=== PATIENT | female | born 1960 | race Caucasian/White ===

== ENCOUNTER → 2020-02-02 09:30 | Outpatient (BNVA) | payer MEDICARE, MEDICAID, SELFPAY | PROVIDERS: Family Provider Family Medicine; PCP Family Medicine; Visit Provider Family Medicine | DX: K21.9 Gastro-esophageal reflux disease without esophagitis (principal); I10 Essential (primary) hypertension; J30.9 Allergic rhinitis, unspecified; E78.00 Pure hypercholesterolemia, unspecified; E11.9 Type 2 diabetes mellitus without complications | CPT/HCPCS: 80053; 80061; 83036 ==

== ENCOUNTER → 2020-02-22 11:37 | Outpatient (BNVA) | payer MEDICARE, MEDICAID, SELFPAY | PROVIDERS: Family Provider Family Medicine; PCP Family Medicine; Visit Provider Podiatrist Foot & Ankle Surgery | DX: M25.571 Pain in right ankle and joints of right foot (principal); M76.829 Posterior tibial tendinitis, unspecified leg; S82.831A Other fracture of upper and lower end of right fibula, initial encounter for closed fracture; X58.XXXA Exposure to other specified factors, initial encounter | CPT/HCPCS: 73610 ==

== ENCOUNTER 2020-02-22 15:14 | Outpatient (CLI) | payer MEDICARE, MEDICAID, SELFPAY | END 2020-02-22 15:15 | disposition home or self-care (01) | LOC: SPT 15:15 | PROVIDERS: Family Provider Family Medicine; PCP Family Medicine; Visit Provider Podiatrist Foot & Ankle Surgery | DX: Z46.89 Encounter for fitting and adjustment of other specified devices (principal); M76.821 Posterior tibial tendinitis, right leg; M25.571 Pain in right ankle and joints of right foot; M76.829 Posterior tibial tendinitis, unspecified leg; S82.831A Other fracture of upper and lower end of right fibula, initial encounter for closed fracture; X58.XXXA Exposure to other specified factors, initial encounter | CPT/HCPCS: 73610; 97760; L1902 ==

== ENCOUNTER 2020-03-29 08:51 | Outpatient (CLI) | payer MEDICARE, MEDICAID, SELFPAY ==
--- NOTE | 2020-03-29 09:05 | MR_ITS ---
WS: [id number] INDICATION: Right foot pain TECHNIQUE: MRI of the right foot without gadolinium enhancement. Sagittal T1 PD and STIR imaging. Axi al PD T2 and STIR imaging. Coronal PD and T2 imaging. FINDINGS: Normal anatomic alignment. No acute fractures. Prior postoperative changes plate and screw fixation distal fibula. Susceptibility artifact from hardware. Normal talus and calcaneus. No evidenc e of avascular necrosis. Plantar calcaneal spurring. Achilles enthesophyte. Metatarsals are normal in appearance. Normal tarsal bones. Normal tibial plafond. Achilles tendon is normal in appearance. Palpable marker lateral hindfoot. Normal underlying soft tis sues. No evidence of soft tissue lesion or mass in this area. Normal visualized peroneal tendons. Nor mal extensor and flexor compartment tendons. Normal navicular. Normal medial and lateral malleolus. N ormal ankle mortise. MR/MR foot RT wo con* [id number] IMPRESSION: 1. Prior postoperative changes plate and screw fixation distal fibula. 2. No acute fractures. Normal talar dome and calcaneus. 3. Palpable marker in the hindfoot. No underlying lesions. 4. Normal peroneal tendons. Normal extensor and flexor compartment tendons. 5. Plantar and Achilles calcaneal spurring.
== END 2020-03-29 08:52 | disposition home or self-care (01) ==
LOC: RADWPI 09:04
PROVIDERS: Family Provider Family Medicine; PCP Family Medicine; Visit Provider Podiatrist Foot & Ankle Surgery
DX: M79.671 Pain in right foot (principal); M77.31 Calcaneal spur, right foot
CPT/HCPCS: 73718

== ENCOUNTER → 2020-05-01 10:27 | Outpatient (BNVA) | payer MEDICARE, MEDICAID, SELFPAY | PROVIDERS: Family Provider Family Medicine; PCP Family Medicine; Visit Provider Family Medicine | DX: K21.9 Gastro-esophageal reflux disease without esophagitis (principal); I10 Essential (primary) hypertension; J30.9 Allergic rhinitis, unspecified; E78.00 Pure hypercholesterolemia, unspecified; E11.9 Type 2 diabetes mellitus without complications | CPT/HCPCS: 80048; 83036 ==

== ENCOUNTER → 2020-05-16 13:13 | Outpatient (BNVA) | payer MEDICARE, MEDICAID, SELFPAY | PROVIDERS: Family Provider Family Medicine; PCP Family Medicine; Visit Provider Family Medicine | DX: Z13.89 Encounter for screening for other disorder (principal) | CPT/HCPCS: 88304 ==

== ENCOUNTER → 2020-08-07 10:25 | Outpatient (BNVA) | payer MEDICARE, MEDICAID, SELFPAY | PROVIDERS: Family Provider Family Medicine; PCP Family Medicine; Visit Provider Family Medicine | DX: I10 Essential (primary) hypertension (principal); E11.9 Type 2 diabetes mellitus without complications; E78.00 Pure hypercholesterolemia, unspecified; K21.9 Gastro-esophageal reflux disease without esophagitis; M76.821 Posterior tibial tendinitis, right leg | CPT/HCPCS: 80053; 80061; 83036 ==

== ENCOUNTER → 2021-02-05 10:44 | Outpatient (BNVA) | payer BC, SELFPAY | PROVIDERS: Family Provider Family Medicine; PCP Family Medicine; Visit Provider Family Medicine | DX: I10 Essential (primary) hypertension (principal); E11.9 Type 2 diabetes mellitus without complications; E78.00 Pure hypercholesterolemia, unspecified; K21.9 Gastro-esophageal reflux disease without esophagitis | CPT/HCPCS: 80048; 80061; 83036 ==

== ENCOUNTER → 2021-04-15 09:32 | Outpatient (BNVA) | payer MEDICARE, MEDICAID, SELFPAY | PROVIDERS: Family Provider Family Medicine; PCP Family Medicine; Visit Provider Podiatrist Foot & Ankle Surgery | DX: M25.571 Pain in right ankle and joints of right foot (principal); M76.821 Posterior tibial tendinitis, right leg; Z01.818 Encounter for other preprocedural examination | CPT/HCPCS: 73610 ==

== ENCOUNTER → 2021-05-06 15:21 | Outpatient (BNVA) | payer MEDICARE, MEDICAID, SELFPAY | PROVIDERS: Family Provider Family Medicine; PCP Family Medicine; Visit Provider Podiatrist Foot & Ankle Surgery | DX: Z01.818 Encounter for other preprocedural examination (principal); Z20.822 Contact with and (suspected) exposure to COVID-19 | CPT/HCPCS: 87635 ==

== ENCOUNTER 2021-05-10 06:11 | Day surgery (SDC) | payer MEDICARE, MEDICAID, SELFPAY ==
[2021-05-09 10:48] VITALS: BMI 25.9
[2021-05-10] VITALS (8 sets, daily range): BP systolic 103–159; BP diastolic 64–96; PULSE 77–110; RESP 13–22; TEMP 36.1–36.6; O2SAT 92–99
[2021-05-10] MEDS: sodium chloride 0.9% 1,000 ML 30 ML IV (07:05)
--- NOTE | 2021-05-10 07:05 | ANES.PREANE2 ---
Pre-Anesthetic Assessment Pre-Anesthetic Assessment: Height/Weight: Height 1.68 m Weight 73.028 kg Temp Pulse Resp BP Pulse Ox 97.7 F 110 H 18 159/96 99 05/10/21 06:28 05/10/21 06:28 05/10/21 06:28 05/10/21 06:28 05/10/21 06:28 Preop Diagnosis: Painful hardware right ankle Proposed Procedure: Operation Date: 05/10/21 08:00 Proposed Procedures p 53862 Deep Hardware Removal of the Right Ankle T84.84XA(Right) - Domenico Harley DPM Familial anesthetic complications: PONV Was Beta Marcos taken within 24 hours: N/A Was Clonidine taken within 24 hours: N/A Last intake: Intake Last Liquid Date 05/09/21 Last Liquid Time 17:30 Last Solid Date 05/09/21 Last Solid Time 16:30 Social: Social History: Tobacco and No alcohol Exam: Pre-Anes Outpt Exam: alert, oriented x 3, clear to auscultation bilaterally and regular rate & rhythm Airway: Cervical ROM: WNL MP: 3 Dentition: Loose (bottom tooth) and Full CV/HEM: CV/HEM: HTN Metabolic: Metabolic: DM and Hyperlipidemia Anesthetic Plan: ASA status: 3 Anesthesia: General Risk of > 500 ml blood loss (7ml/kg in children): No Meds/Allergies Current Medications: Current Medications Generic Name Dose Route Start Last Admin Trade Name Freq PRN Reason Stop Dose Admin Sodium Chloride 1,000 mls @ 30 ml s/hr 05/10/21 06:30 05/10/21 07:05 Sodium Chloride 0.9% IV 05/11/21 06:29 30 mls/hr .Q24H CAROL Administration PFSH Anesthesia PFSH: Medical History Allergic rhinitis Chronic cough Essential hypertension GERD (gastroesophageal reflux disease) History of nonmelanoma skin cancer Hypercholesteremia Type 2 diabetes mellitus Surgical History H/O section H/O hernia repair H/O: hysterectomy History of ankle surgery History of surgery of liver Hx of basal cell carcinoma excision S/P appendectomy S/P cholecystectomy Social History Quit status (tobacco): not considering quitting Second hand smoke exposure: No Alcohol intake: current Alcohol intake frequency: holidays/special occasions only Desire information about substance/drug rehabilitation?: No History of recent travel: No Current gender identity: Female Female Reproductive History: Spontaneous abortions: No Data Anesthesia Cardiac Studies: No Data to Display
--- NOTE | 2021-05-10 07:49 | P.OP_ITS ---
Operative Report Date of procedure: May 10, 2021 Pre-op Diagnosis: Painful hardware right ankle Post-op diagnosis: same Post-op Findings: None Procedure Done: Deep Hardware Removal of the Right Ankle CPT code 70542 Implants: 3-0 Vicryl, 4-0 Vicryl, skin pam Pathology: none sent Surgeon: Domenico Harley D.P.M. Import/Export Freight Forwarder: Cindy Anesthesia: MAC Estimated blood loss: Less than 5 Tourniquet time: 21 minutes IV fluids: None Urine output: None Complications: None Condition: stable Disposition: PACU Brief History: She has persistent hardware pain on her right outside ankle. Would like to have this removed. Risks include pain, bleeding, numbness, infection, failure to alleviate pain, keloid scar, failure to extract hardware, hardware breakage. Need for further surgical intervention. Patient is agreeable wishes to proceed. Has been n.p.o. since midnight. Initial patient's right lower extremity, informed consent signed she wishes to proceed no guarantees written, expressed or implied. Procedure: Patient was brought to the operating room and placed on the operating table in supine position. A timeout was performed. Anesthesia was then administered by the anesthesia service. Local anesthesia injected by myself consisting of 20 cc of 0.5% Marcaine plain in a V-block proximal to the operative site right lateral ankle. Well-padded pneumatic tourniquet applied to the high calf. Right lower extremity was then scrubbed, prepped and draped utilizing normal aseptic technique. Right foot and ankle was examined a weighted with an Esmarch bandage and a tourniquet inflated to 250 mmHg. Attention was directed to the right lateral ankle where over the previous healed cicatrix a linear longitudinal incision was made with #15 blade and carried down to periosteum utilizing a combination of blunt and sharp technique. Care was taken to retract and preserve neurovascular tendinous structures. All bleeders were ligated and cauterized as necessary. Linear periosteal incision was made and a lateral fibular plate was encountered. Total of 4 screws in anatomic fibular plate was removed and passed from the operative field. Incision site was flushed with copious amounts of sterile saline solution. Attention was then directed to the distal fibula where determination was made that further surgical trauma outweighing benefits of removal of 2 remaining screws that are interosseous/interfragmentary these were left intact screw heads were not proud that were not visualized these were well countersunk and will remain intact. Incision site was flushed once again with saline solution. Incision was then closed utilizing 3-0 Vicryl periosteum, 4-0 Vicryl subcutaneous tissue, pam at skin and and postoperative injection of Exparel total of 10 mL expanded with an additional 10 mL of 0.5 Marcaine plain in a grid like fashion and subcutaneously was performed per manufacture recommendation. Incision was then asked with Adaptic, sterile 4 x 4, Kerlix and Justin wrap. Tourniquet was then deflated and a prompt hyperemic response is noted to the distal digits of the right foot. Patient tolerated the procedure and anesthesia well and was transferred to the PACU with vital signs stable and vascular status intact. Postop shoe applied to the right lower extremity. Patient was given at home discharge instructions on paperwork as well as my phone number to contact with any postoperative questions or concerns. Hydrocodone sent to her pharmacy of choice
--- NOTE | 2021-05-10 07:49 | W.PM.OPSUD ---
Surgery/Procedure H&P Update DATE OF PROCEDURE: May 10, 2021 DATE H&P PERFORMED: 04/15/21 H&P UPDATE INFORMATION: I have reviewed H&P completed within last 30 days, I have examined patient prior to procedure, No changes to prior documentation and H&P is in [facility] EMR on date indicated PREOP DIAGNOSIS: Painful hardware right ankle PLANNED PROCEDURE: Operation Date: 05/10/21 08:00 Proposed Procedures p 74529 Deep Hardware Removal of the Right Ankle T84.84XA(Right) - Domenico Harley DPM
[2021-05-10] MEDS: clindamycin 600 MG/50 ML PREMIX 100 MG IV (08:10)
--- NOTE | 2021-05-10 08:36 | PC.NURSE ---
4 screws removed from patients right ankle, sent to sterile processing, will be returned to patient.
--- NOTE | 2021-05-10 08:57 | XRR_ITS ---
PROCEDURE INFORMATION: Exam: XR Right Ankle Exam date and time: 05/10/2021 8:57 AM Age: 60 years old Clinical indication: Device placement; Other: Deep hardware removal of the right ankle cpt code 60706; Prior surgery; Surgery date: Post-operative (0-2 days); Additional info: Postop TECHNIQUE: Imaging protocol: XR Right ankle. Views: 3 or more views. COMPARISON: CR XR ankle RT min 3V* [id number] 04/15/2021 9:38 AM FINDINGS: Bones/joints: Interval removal of the fibular side plate and associated screws. Two other longer screws remain in the distal fibula. No acute fracture. No dislocation. The ankle mortise is intact. Soft tissues: There is lateral superficial soft tissue swelling. XR/XR ankle RT min 3V* [id number] IMPRESSION: Postoperative changes.
--- NOTE | 2021-05-10 14:49 | ANE.PACU2 ---
Inpatient post-anesthesia follow up: Airway intact: Yes Vital signs: Temperature 97.9 F Pulse Rate 82 Respiratory Rate 15 Blood Pressure 130/90 Pulse Oximetry 98 Oxygen Delivery Me thod Room Air Oxygen Flow Rate Fraction of Inspir ed Oxygen Hydration adequate: Yes Nausea and vomiting: No Pain level: 2 Mental status: Baseline
== END 2021-05-10 09:41 | disposition home or self-care (01) ==
PROVIDERS: PCP Family Medicine; Visit Provider Podiatrist Foot & Ankle Surgery
PROC: (CPT 20680; principal; 2021-05-10 07:40)
DX: T84.84XA Pain due to internal orthopedic prosthetic devices, implants and grafts, initial encounter (principal); I10 Essential (primary) hypertension; E11.9 Type 2 diabetes mellitus without complications; E78.5 Hyperlipidemia, unspecified; E78.00 Pure hypercholesterolemia, unspecified; Z79.84 Long term (current) use of oral hypoglycemic drugs
CPT/HCPCS: 20680; 73610; 96365; C9290; J2250; J2704; J3490; J7030

== ENCOUNTER → 2021-08-01 08:24 | Outpatient (BNVA) | payer MEDICARE, MEDICAID, SELFPAY | PROVIDERS: PCP Family Medicine; Visit Provider Podiatrist Foot & Ankle Surgery | DX: Z47.89 Encounter for other orthopedic aftercare (principal); M25.571 Pain in right ankle and joints of right foot | CPT/HCPCS: 73610 ==

== ENCOUNTER → 2021-08-07 11:02 | Outpatient (BNVA) | payer MEDICARE, MEDICAID, SELFPAY | PROVIDERS: PCP Family Medicine; Visit Provider Family Medicine | DX: K21.9 Gastro-esophageal reflux disease without esophagitis (principal); I10 Essential (primary) hypertension; E11.9 Type 2 diabetes mellitus without complications; L60.3 Nail dystrophy; E78.00 Pure hypercholesterolemia, unspecified | CPT/HCPCS: 80053; 83036 ==

== ENCOUNTER → 2021-09-19 09:02 | Outpatient (BNVA) | payer MEDICARE, MEDICAID, SELFPAY | PROVIDERS: PCP Family Medicine; Visit Provider Podiatrist Foot & Ankle Surgery | DX: B35.1 Tinea unguium (principal) | CPT/HCPCS: 80053 ==

== ENCOUNTER → 2022-02-05 10:56 | Outpatient (BNVA) | payer MEDICARE, MEDICAID, SELFPAY | PROVIDERS: PCP Family Medicine; Visit Provider Family Medicine | DX: E11.9 Type 2 diabetes mellitus without complications (principal); E78.00 Pure hypercholesterolemia, unspecified; I10 Essential (primary) hypertension | CPT/HCPCS: 80053; 80061; 83036; 83721 ==

== ENCOUNTER → 2022-04-21 08:37 | Outpatient (BNVA) | payer MEDICARE, MEDICAID, SELFPAY | PROVIDERS: PCP Family Medicine; Visit Provider Podiatrist Foot & Ankle Surgery | DX: M72.2 Plantar fascial fibromatosis (principal); B35.1 Tinea unguium | CPT/HCPCS: 99213 ==

== ENCOUNTER → 2022-06-23 08:50 | Outpatient (BNVA) | payer MEDICARE, MEDICAID, SELFPAY | PROVIDERS: PCP Family Medicine; Visit Provider Podiatrist Foot & Ankle Surgery | DX: B35.1 Tinea unguium (principal); M72.2 Plantar fascial fibromatosis; G57.51 Tarsal tunnel syndrome, right lower limb | CPT/HCPCS: 99213; 99214 ==

== ENCOUNTER 2022-07-07 11:20 | Outpatient (CLI) | payer MEDICARE, MEDICAID, SELFPAY | END 2022-07-07 11:21 | disposition home or self-care (01) | LOC: SPT 11:21 | PROVIDERS: PCP Family Medicine; Visit Provider Podiatrist Foot & Ankle Surgery | DX: Z46.89 Encounter for fitting and adjustment of other specified devices (principal); M72.2 Plantar fascial fibromatosis | CPT/HCPCS: 97760; L3030 ==

== ENCOUNTER → 2022-08-11 10:09 | Outpatient (BNVA) | payer MEDICARE, MEDICAID, SELFPAY | PROVIDERS: PCP Family Medicine; Visit Provider Family Medicine | DX: E78.00 Pure hypercholesterolemia, unspecified (principal); K21.9 Gastro-esophageal reflux disease without esophagitis; J30.1 Allergic rhinitis due to pollen; I10 Essential (primary) hypertension; E11.9 Type 2 diabetes mellitus without complications; J30.9 Allergic rhinitis, unspecified; Z71.85 Encounter for immunization safety counseling; L90.5 Scar conditions and fibrosis of skin | CPT/HCPCS: 80053; 83036 ==

== ENCOUNTER → 2022-08-18 09:43 | Outpatient (BNVA) | payer MEDICARE, MEDICAID, SELFPAY | PROVIDERS: PCP Family Medicine; Visit Provider Podiatrist Foot & Ankle Surgery | DX: B35.1 Tinea unguium (principal); M72.2 Plantar fascial fibromatosis; G57.51 Tarsal tunnel syndrome, right lower limb | CPT/HCPCS: 99213 ==

== ENCOUNTER → 2022-12-31 09:24 | Outpatient (BNVA) | payer MEDICARE, MEDICAID, SELFPAY | PROVIDERS: PCP Family Medicine; Visit Provider Podiatrist Foot & Ankle Surgery | DX: G57.51 Tarsal tunnel syndrome, right lower limb (principal); T84.84XA Pain due to internal orthopedic prosthetic devices, implants and grafts, initial encounter; Y79.2 Prosthetic and other implants, materials and accessory orthopedic devices associated with adverse incidents | CPT/HCPCS: 73630; 99214 ==

== ENCOUNTER 2023-01-23 06:25 | Day surgery (SDC) | payer MEDICARE, MEDICAID, SELFPAY ==
[2023-01-22 12:40] VITALS: BMI 25.2
[2023-01-23] VITALS (7 sets, daily range): BP systolic 82–188; BP diastolic 59–88; PULSE 71–83; RESP 16–18; TEMP 36.3–36.6; O2SAT 93–98
--- NOTE | 2023-01-23 | XR_ITS ---
WS: [id number] Exam: XR ankle RT 2V [id number] Date/Time of Exam: 01/23/2023 12:00 AM Reason For Exam: SONYA PIC AP view of the right ankle demonstrates 2 orthopedic screws superimposing the fibula. A lateral view of the right foot depicts an orthopedic wire superimposing the anterior calcaneus and talus. These im ages were obtained for intraoperative purposes.
[2023-01-23] MEDS: sodium chloride 0.9% 1,000 ML 30 ML IV (06:48)
--- NOTE | 2023-01-23 07:06 | ANES.PREANE2 ---
Pre-Anesthetic Assessment Height/Weight: Height 1.69 m Weight 72.121 kg Temp Pulse Resp BP Pulse Ox O2 Del Method 97.4 F L 83 18 188/88 98 Room Air 01/23/23 06:17 01/23/23 06:17 01/23/23 06:17 01/23/23 06:17 01/23/23 06:17 01/23/23 06:42 Preop Diagnosis: Painful hardware right ankle Operation Date: 01/23/23 08:10 Proposed Procedures p ?Hardware removal right ankle 44147,T84.84 XA(Right) - Domenico Harley DPM Familial anesthetic complications: None Was Beta Marcos taken within 24 hours: N/A Was Clonidine taken within 24 hours: N/A Last intake: Intake Last Liquid Date 01/22/23 Last Liquid Time 17:30 Last Solid Date 01/22/23 Last Solid Time 16:00 Social No alcohol and No tobacco quit smoking Exam alert, oriented x 3, clear to auscultation bilaterally and regular rate & rhythm Airway Mallampati: Class III Dentition: loose and other (multiple missing) CV/HEM Hypertension GI Gastroesophageal Reflux Disease Metabolic Diabetes Mellitus and Hyperlipidemia Anesthetic Plan ASA status: 3 Anesthesia: MAC Risk of > 500 ml blood loss (7ml/kg in children): No Medications/Allergies Home Medications Medication Instructions Recorded Confirmed Last Taken Type Sole Supports #1 ea 04/21/22 12/31/22 Unknown Rx Zyrtec 10 mg capsule (cetirizine) 10 mg PO .at bedtime 90 days #90 08/11/22 01/22/23 01/22/23 Rx caps atorvastatin 40 mg tablet 40 mg PO DAILY 90 days #90 tabs 08/11/22 01/22/23 01/22/23 Rx cimetidine 200 mg tablet 200 mg PO BID 90 days #180 tabs 08/11/22 01/22/23 01/22/23 Rx fluticasone propionate 50 1 spray intranasal Q12H #15.8 mL 08/11/22 01/22/23 01/22/23 Rx mcg/actuation nasal spray,suspension metformin 1,000 mg tablet 1,000 mg PO DAILY 90 days #90 tabs 08/11/22 01/22/23 01/22/23 Rx triamcinolone acetonide 0.1 % 1 applic topical BID #80 grams 08/11/22 01/22/23 01/22/23 Rx topical ointment lisinopril 40 mg tablet 40 mg PO DAILY 01/22/23 01/22/23 01/22/23 History Allergies Allergy/AdvReac Type Severity Reaction Status Date / Time aspirin Allergy Unknown GI Bleed Verified 01/23/23 06:34 ibuprofen Allergy Unknown GI BLEED Verified 01/23/23 06:34 milk Allergy Unknown GI BLEED Verified 01/23/23 06:34 oxycodone [From Percocet] Allergy Unknown GI BLEED Verified 01/23/23 06:34 Penicillins Allergy Unknown GI BLEED Verified 01/23/23 06:34 Current Medications Generic Name Dose Route Start Last Admin Trade Name Freq PRN Reason Stop Dose Admin Sodium Chloride 1,000 mls @ 30 mls/hr 01/23/23 06:30 01/23/23 06:48 Sodium Chloride 0.9% IV 01/24/23 06:29 30 mls/hr .Q24H CAROL Administration PFSH Anesthesia Medical History Allergic rhinitis Chronic cough Essential hypertension GERD (gastroesophageal reflux disease) History of nonmelanoma skin cancer Hypercholesteremia Type 2 diabetes mellitus Surgical History H/O section H/O hernia repair H/O: hysterectomy History of ankle surgery History of surgery of liver Hx of basal cell carcinoma excision S/P appendectomy S/P cholecystectomy Social History Smoking and tobacco status: former smoker Quit status (tobacco): not considering quitting Second hand smoke exposure: No Alcohol intake: current Alcohol intake frequency: holidays/special occasions only Substance/Drug Use: never Desire information about substance/drug rehabilitation?: No Current gender identity: Female Female Reproductive History Spontaneous abortions: No Data Anesthesia Cardiac Studies: No Data to Display
--- NOTE | 2023-01-23 07:43 | W.PM.OPSUD ---
Surgery/Procedure H&P Update DATE OF PROCEDURE: January 23, 2023 DATE H&P PERFORMED: 12/31/22 CHANGES TO PREVIOUS DOCUMENTATION: none PREOP DIAGNOSIS: Painful hardware right ankle PLANNED PROCEDURE: Operation Date: 01/23/23 08:10 Proposed Procedures p ?Hardware removal right ankle 94870,T84.84 XA(Right) - Domenico Harley DPM
[2023-01-23] MEDS: clindamycin 600 MG/50 ML PREMIX 100 MG IV (08:00)
--- NOTE | 2023-01-23 08:48 | PM.OP ---
Operative Report Date of procedure: January 23, 2023 Pre-op diagnosis: Preop Diagnosis Painful hardware right ankle Post-op diagnosis: Same Post-op findings: None Procedure done: Hardware removal right ankle. CPT code 17908 Implants: 4-0 nylon Specimens removed/disposition: Screw x2 removed without incident Pathology: None Surgeon: Domenico Harely D.P.M. Outpatient Admitting Clerk: Vickie Estimated blood loss: 5 29 IV fluids: 0 Urine output: 0 Complications: None Brief History: Patient is a pleasant 62-year-old female presents with complaints of pain on the outside of her right ankle.? She is questioning if retained screws are source of her pain.? She has been wearing custom orthotics supportive shoes.? Has been wearing compression socks and performing daily range of motion exercises as well as topical anti-inflammatories.? She has pain at the outside of her right ankle on a regular basis with everyday activities.? She does not experience any buckling or rolling of her right ankle.? Discussed potential benefits of hardware movable being reduction in pain.? No guarantee that hardware removal may result in pain relief.? She is aware of this.? I reviewed at length with the patient, the risks, potential complications, benefits, alternatives, expectations, and typical outcomes associated with the surgery. The risks and potential complications were explained in detail, including but not limited to infection, wound dehiscence or soft tissue complications, bleeding and hematoma, chronic edema, neuritis or nerve damage producing numbness or chronic pain, CRPS, failure to relieve pain or worsening pain, thick / painful / unsightly scar, limited motion / stiffness, malposition, delayed union, malunion, or nonunion, fracture, reaction to implants, anesthetic complications, venous thromboembolism, and deformity recurrence.? I discussed the notion of no regrets with the patient as it pertains to complications and outcomes. The patient seemed to understand the nature of the proposed care and required convalescence. They asked appropriate questions, answered to their satisfaction. They are aware no guarantees can be made as to a satisfactory outcome and they understand there may be other possible unforeseen complications or outcomes not listed here that will be treated accordingly if they arise. There were no written or implied guarantees given to the patient. They gave informed consent to proceed. Procedure: Under mild sedation the patient was brought to the operating room and remained on the gurney in supine position. A timeout was performed. Anesthesia was then administered by the anesthesia service. Local anesthesia was injected by myself consisting of 0.5% Marcaine plain and Exparel in a local field block to the right lateral distal leg just proximal to the planned incision. Well-padded pneumatic tourniquet applied to the right calf. The right lower extremity was scrubbed, prepped and draped utilizing normal aseptic technique. Right foot and ankle were exanguinated with Esmarch bandage and the tourniquet inflated to 250 mmHg. Attention was directed to the right lateral ankle where the lateral malleolus was palpated. Utilizing mini C arm and triangulation with percutaneous K wire the K wire was inserted into the cannula percutaneously of the 2 screws retained in the right lateral malleolus. Percutaneous incision was made through skin and a cannulated screwdriver was utilized to remove both screws from bone without fragmentation or failure. Screws were removed in their entirety and passed from the operative field. The incision was irrigated with copious amounts of sterile skin solution. Intraoperative C-arm confirmed both in the AP, oblique and lateral view that no retained hardware was appreciated and the all hardware was extracted without complication or fragmentation. Skin was closed with 4-0 nylon. The incision was then dressed with Adaptic, sterile 4 x 4's, Kerlix and Justin wrap. Smooth range of motion of the right ankle was appreciated intraoperatively. No crepitus appreciated with range of motion of the right ankle intraoperatively. Tourniquet was deflated and a prompt hyperemic response was noted to the distal digits of the right foot. Postop shoe was applied to the right foot. Patient tolerated the procedure well and was transferred to the PACU with vital signs stable and vascular status intact. Following a period of postoperative monitoring she will be discharged home. May be weightbearing as tolerated. She is to elevate her right foot while resting. Was given at home care instructions and postoperative follow-up as well as my cell phone number to contact with any postoperative questions or concerns.
--- NOTE | 2023-01-23 08:50 | PC.NURSE ---
Pt arrived to OPS at 0847 with oral airway in place and O2 at 6L/min via simple mask. Dressing to right foot c/d/i, right toes w/d, cap refill <3 seconds, able to wiggle toes. Awake at this time, oral airway removed, tolerated well.
--- NOTE | 2023-01-23 13:00 | ANE.PACU2 ---
Inpatient post-anesthesia follow up: Airway intact: Yes Vital signs: Temperature 97.8 F Pulse Rate 73 Respiratory Rate 16 Blood Pressure 111/64 Pulse Oximetry 96 Oxygen Delivery Me thod Room Air Oxygen Flow Rate 6 Fraction of Inspir ed Oxygen Hydration adequate: Yes Nausea and vomiting: No Pain level: 1 Mental status: Baseline
[2023-01-26 05:16] LABS: Glucose Point of Care 134 mg/dL (70-110)
== END 2023-01-23 09:56 | disposition home or self-care (01) ==
PROVIDERS: PCP Family Medicine; Visit Provider Podiatrist Foot & Ankle Surgery
PROC: (CPT 20680; principal; 2023-01-23 08:00)
DX: T84.84XA Pain due to internal orthopedic prosthetic devices, implants and grafts, initial encounter (principal); Y79.2 Prosthetic and other implants, materials and accessory orthopedic devices associated with adverse incidents; Z87.891 Personal history of nicotine dependence; I10 Essential (primary) hypertension; K21.9 Gastro-esophageal reflux disease without esophagitis; E11.9 Type 2 diabetes mellitus without complications; E78.5 Hyperlipidemia, unspecified; Z79.84 Long term (current) use of oral hypoglycemic drugs
CPT/HCPCS: 20680; 36416; 73600; 76000; 82962; C9290; J2250; J2704; J3010; J3490; J7030

== ENCOUNTER → 2023-01-29 11:56 | Outpatient (BNVA) | payer MEDICARE, MEDICAID, SELFPAY | PROVIDERS: PCP Family Medicine; Visit Provider Podiatrist Foot & Ankle Surgery | DX: Z98.890 Other specified postprocedural states (principal); Z48.89 Encounter for other specified surgical aftercare | CPT/HCPCS: 99024 ==

== ENCOUNTER → 2023-02-04 11:00 | Outpatient (BNVA) | payer MEDICARE, MEDICAID, SELFPAY | PROVIDERS: PCP Family Medicine; Visit Provider Podiatrist Foot & Ankle Surgery | DX: Z98.890 Other specified postprocedural states (principal) | CPT/HCPCS: 99024 ==

== ENCOUNTER → 2023-02-16 09:31 | Outpatient (BNVA) | payer MEDICARE, MEDICAID, SELFPAY | PROVIDERS: PCP Family Medicine; Visit Provider Family Medicine | DX: E78.00 Pure hypercholesterolemia, unspecified (principal); E11.9 Type 2 diabetes mellitus without complications; I10 Essential (primary) hypertension | CPT/HCPCS: 80053; 80061; 83036 ==

== ENCOUNTER → 2023-03-26 14:15 | Outpatient (BNVA) | payer MEDICARE, MEDICAID, SELFPAY | PROVIDERS: PCP Family Medicine; Visit Provider Podiatrist Foot & Ankle Surgery | DX: M67.971 Unspecified disorder of synovium and tendon, right ankle and foot (principal) | CPT/HCPCS: 99214 ==

== ENCOUNTER → 2023-04-09 09:20 | Outpatient (BNVA) | payer MEDICARE, MEDICAID, SELFPAY | PROVIDERS: PCP Family Medicine; Visit Provider Nurse Practitioner Family | DX: L20.89 Other atopic dermatitis (principal); L55.9 Sunburn, unspecified; D23.72 Other benign neoplasm of skin of left lower limb, including hip; L81.4 Other melanin hyperpigmentation; D22.5 Melanocytic nevi of trunk; Z85.828 Personal history of other malignant neoplasm of skin; Z87.891 Personal history of nicotine dependence | CPT/HCPCS: 99214 ==

== ENCOUNTER 2023-04-14 09:12 | Outpatient (CLI) | payer MEDICARE, MEDICAID, SELFPAY ==
--- NOTE | 2023-04-14 09:30 | MR_ITS ---
WS: [id number] EXAMINATION: MR foot RT wo con* [id number] ORDER DATE: 04/14/2023 10:03 AM COMPARISON: None. HISTORY: Pt tendon tear CONTRAST: March 29, 2020 TECHNIQUE: Sagittal T1, sagittal STIR, coronal PD, coronal T2, axial T1, axial T2, and axial PD imagi ng with fat saturation technique. FINDINGS: Postoperative changes screw fixation across the lateral malleolus. Achilles insertion enthesophyte. O steopenia. Mild hammertoe deformities. Degenerative narrowing involving the IP joints. Normal bone ma rrow signal in the talar dome and calcaneus. Distal Achilles tendon appears intact. Small amount of edema involving the proximal plantar aponeurosis. Recommend correlation for plantar f ascitis. Normal distal tibial plafond. Normal peroneal longus and brevis. Normal peroneal tendon sheath. Normal proximal visualized extensor and flexor compartment tendons. Susceptibility artifact from hardware limits of images. Normal bone marrow signal in the metatarsals. Normal tarsal bones. MR/MR foot RT wo con* [id number] IMPRESSION: Susceptibly artifact from screw fixation degrades images 1. No acute fractures. Normal bone marrow signal in the talus and calcaneus. 2. Distal Achilles appears intact. 3. Peroneus longus and brevis appear intact. Normal visualized proximal extens or and flexor compartment tendons. 4. Normal bone marrow signal in the metatarsals and tarsal bones. 5. Small amount of edema along the proximal plantar fascia at the medial inser tion suspicious for plantar fasciitis. Plantar fascia measures 4.7 mm in maximu m thickness. 6. Prior postoperative changes screw fixation across the lateral malleolus.
== END 2023-04-14 09:13 | disposition home or self-care (01) ==
PROVIDERS: PCP Family Medicine; Visit Provider Podiatrist Foot & Ankle Surgery
DX: M76.821 Posterior tibial tendinitis, right leg (principal); R60.0 Localized edema; Z98.890 Other specified postprocedural states
CPT/HCPCS: 73718

== ENCOUNTER → 2023-05-13 10:13 | Outpatient (BNVA) | payer MEDICARE, MEDICAID, SELFPAY | PROVIDERS: PCP Family Medicine; Visit Provider Podiatrist Foot & Ankle Surgery | DX: E11.9 Type 2 diabetes mellitus without complications (principal); M72.2 Plantar fascial fibromatosis; Z79.84 Long term (current) use of oral hypoglycemic drugs | CPT/HCPCS: 99213 ==

== ENCOUNTER 2023-06-05 06:00 | Outpatient (RCR) | payer MEDICARE, MEDICAID, SELFPAY | END 2023-07-04 23:59 | disposition home or self-care (01) | LOC: MPT 06:00 | PROVIDERS: PCP Family Medicine; Visit Provider Podiatrist Foot & Ankle Surgery | DX: M72.2 Plantar fascial fibromatosis (principal) | CPT/HCPCS: 97110; 97140; 97162 ==

== ENCOUNTER 2023-06-24 14:10 | Outpatient (CLI) | payer MEDICARE, MEDICAID, SELFPAY | END 2023-06-24 14:11 | disposition home or self-care (01) | LOC: SPT 14:11 | PROVIDERS: PCP Family Medicine; Visit Provider Podiatrist Foot & Ankle Surgery | DX: Z46.89 Encounter for fitting and adjustment of other specified devices (principal); E11.9 Type 2 diabetes mellitus without complications; M67.979 Unspecified disorder of synovium and tendon, unspecified ankle and foot; M76.821 Posterior tibial tendinitis, right leg | CPT/HCPCS: 97760; L3030 ==

== ENCOUNTER 2023-07-05 06:00 | Outpatient (RCR) | payer MEDICARE, MEDICAID, SELFPAY | END 2023-07-29 23:59 | disposition home or self-care (01) | LOC: MPT 06:00 | PROVIDERS: PCP Family Medicine; Visit Provider Podiatrist Foot & Ankle Surgery | DX: M72.2 Plantar fascial fibromatosis (principal) | CPT/HCPCS: 97110; 97116 ==

== ENCOUNTER → 2023-09-22 13:15 | Outpatient (BNVA) | payer MEDICARE, MEDICAID, SELFPAY | PROVIDERS: PCP Family Medicine; Visit Provider Family Medicine | DX: E78.00 Pure hypercholesterolemia, unspecified (principal); K21.9 Gastro-esophageal reflux disease without esophagitis; I10 Essential (primary) hypertension; J30.1 Allergic rhinitis due to pollen; E11.9 Type 2 diabetes mellitus without complications; J30.9 Allergic rhinitis, unspecified; M17.12 Unilateral primary osteoarthritis, left knee; S69.92XA Unspecified injury of left wrist, hand and finger(s), initial encounter; S69.92XS Unspecified injury of left wrist, hand and finger(s), sequela | CPT/HCPCS: 73130; 73562; 80053; 80061; 83036 ==

== ENCOUNTER 2023-12-23 09:10 | Outpatient (CLI) | payer MEDICARE, MEDICAID, SELFPAY ==
--- NOTE | 2023-12-23 10:00 | CT_ITS ---
WS: [id number] LDCT LUNG CANCER SCREENING TECHNIQUE: Noncontrast CT of the chest with coronal and sagittal reformatted images. CLINICAL INFORMATION: Z87.891 - Personal history of nicotine dependence COMPARISON: None. DLP: 54.92 mGy.cm DIvol: Mean CTDIvol: 1.20 (mGy) All CT scans at [facility] use at least one of these dose optimization techniques: automat ed exposure control; mA and/or kV adjustment per patient size (includes targeted exams where dose is matched to clinical indication); or iterative reconstruction. FINDINGS:4 mm nodule RIGHT lung apex. Nodular RIGHT thyroid. Aortic calcification. Normal caliber thoracic aorta. Coronary calcification. N o mediastinal or hilar lymphadenopathy. No axillary lymphadenopathy. Adrenal glands are normal. Moderate esophageal hiatal hernia. Moderate thoracic kyphosis. Hypertrophi c changes thoracic spine. Incidental azygos fissure. IMPRESSION: Nodular RIGHT thyroid. This can be further evaluated with ultrasound. CT/CT lung screening [id number] LUNG-RADS: 2S-Benign Appearance or Behavior with Significant Findings FOLLOW UP: 12 Month: Continue annual screening with LDCT
== END 2023-12-23 09:11 | disposition home or self-care (01) ==
LOC: RAD 09:13
PROVIDERS: PCP Family Medicine; Visit Provider Family Medicine
DX: Z12.2 Encounter for screening for malignant neoplasm of respiratory organs (principal); Z87.891 Personal history of nicotine dependence; E04.1 Nontoxic single thyroid nodule
CPT/HCPCS: 71271

== ENCOUNTER → 2024-01-06 10:10 | Outpatient (BNVA) | payer MEDICARE, MEDICAID, SELFPAY | PROVIDERS: PCP Family Medicine; Visit Provider Podiatrist Foot & Ankle Surgery | DX: M72.2 Plantar fascial fibromatosis (principal); E11.42 Type 2 diabetes mellitus with diabetic polyneuropathy; Z79.84 Long term (current) use of oral hypoglycemic drugs | CPT/HCPCS: 99213 ==

== ENCOUNTER 2024-01-07 08:59 | Outpatient (CLI) | payer MEDICARE, MEDICAID, SELFPAY ==
--- NOTE | 2024-01-07 09:00 | MM_ITS ---
WS: [id number] SCREENING DIGITAL TOMOSYNTHESIS MAMMOGRAM WITH CAD HISTORY: Z12.39 - Encounter for other screening for malignant neop... COMPARISON: None available. Bilateral CC and MLO with tomosynthesis views submitted. Synthetic mammography reviewed. Computer aid ed detection analyzed. Breast composition: There are scattered areas of fibroglandular density. No suspicious masses, microc alcifications or architectural distortion. IMPRESSION: MM/[place] [id number] BI-RADS: 2-Benign FOLLOW UP: 1 Year Follow-up
== END 2024-01-07 09:00 | disposition home or self-care (01) ==
LOC: MOBLMAM 09:05
PROVIDERS: PCP Family Medicine; Visit Provider Family Medicine
DX: Z12.31 Encounter for screening mammogram for malignant neoplasm of breast (principal)
CPT/HCPCS: 77063; 77067

== ENCOUNTER → 2024-01-11 08:59 | Outpatient (BNVA) | payer MEDICARE, MEDICAID, SELFPAY | PROVIDERS: PCP Family Medicine; Referring Provider Family Medicine; Visit Provider Specialist | DX: M25.562 Pain in left knee (principal); M17.12 Unilateral primary osteoarthritis, left knee | CPT/HCPCS: 73560; 73565; 99204 ==

== ENCOUNTER → 2024-01-13 09:55 | Outpatient (BNVA) | payer MEDICARE, MEDICAID, SELFPAY | PROVIDERS: PCP Family Medicine; Visit Provider Nurse Practitioner Family | DX: L20.89 Other atopic dermatitis (principal); Z85.828 Personal history of other malignant neoplasm of skin; L55.9 Sunburn, unspecified; D23.72 Other benign neoplasm of skin of left lower limb, including hip; L81.4 Other melanin hyperpigmentation; D22.5 Melanocytic nevi of trunk; D18.01 Hemangioma of skin and subcutaneous tissue; L91.0 Hypertrophic scar | CPT/HCPCS: 11900; 99214 ==

== ENCOUNTER → 2024-02-15 08:42 | Outpatient (BNVA) | payer MEDICARE, MEDICAID, SELFPAY | PROVIDERS: PCP Family Medicine; Visit Provider Nurse Practitioner Family | DX: L91.0 Hypertrophic scar (principal); L81.4 Other melanin hyperpigmentation; Z85.828 Personal history of other malignant neoplasm of skin | CPT/HCPCS: 11900; 99213 ==

== ENCOUNTER 2024-02-17 09:50 | Outpatient (CLI) | payer MEDICARE, MEDICAID, SELFPAY ==
--- NOTE | 2024-02-17 10:15 | MR_ITS ---
WS: [id number] MRI LEFT KNEE HISTORY: left knee pain COMPARISON: Radiograph 01/11/2024 Anterior cruciate ligament: Increased T2 signal in the ACL but there is no tear. Posterior cruciate ligament: Intact. Medial collateral ligament: Intact. Posterior lateral corner structures: Intact although slightly displaced by an extruded meniscus and o steophytosis along the tibial plateau and femoral condyle. Increased T2 signal in the popliteus tendo n. Medial menisci: Intact. Normal signal, size and shape. Lateral meniscus: Abnormal shape and signal throughout the entire posterior horn of the lateral menis cus. Lateral meniscus is extruded from the joint line. The abnormal signal extends through the free e dge and body to the anterior horn. Extensor mechanism: Distal quadriceps tendon and patellar tendons are intact. Fluid and soft tissue: No joint effusion. No Roth's cyst. Osseous and articular structures: Patellofemoral compartment: Mild thinning of the cartilage. Medial compartment: Very mild narrowing of the medial compartment. Mild diffuse chondromalacia. No ma rrow edema. Lateral compartment: Mild near the lateral compartment. Marginal osteophytes from the tibial plateau and femoral condyle. Diffuse loss of cartilage. Subchondral cystic changes along the surface of the t ibial plateau. MR/MR knee LT con* [id number] IMPRESSION: 1. Complex tears involving the anterior and posterior horns of the lateral men iscus. There is partial extrusion of the meniscus from the joint line. 2. Mild narrowing of the medial and lateral compartments. Bilateral chondromal acia but greatest involving the lateral compartment. 3. Suspect partially torn popliteus tendon. 4. No fracture.
== END 2024-02-17 09:51 | disposition home or self-care (01) ==
LOC: RAD 09:50
PROVIDERS: PCP Family Medicine; Visit Provider Specialist
DX: S83.272A Complex tear of lateral meniscus, current injury, left knee, initial encounter (principal); M23.322 Other meniscus derangements, posterior horn of medial meniscus, left knee; M94.261 Chondromalacia, right knee; M94.262 Chondromalacia, left knee
CPT/HCPCS: 73721

== ENCOUNTER 2024-04-11 12:34 | Outpatient (CLI) | payer MEDICARE, MEDICAID, SELFPAY ==
--- NOTE | 2024-04-11 12:45 | US_ITS ---
WS: [id number] Thyroid ultrasound, 04/11/2024 Clinical Data: E04.1 - Nontoxic single thyroid nodule Comparison: None. Findings: The right lobe of thyroid measures 4.5 cm x 2.0 cm x 1.7 cm. There is a nodule of mixed echogenicity measuring 1.5 x 1.6 x 2.2 cm. The left lobe measures 4.1 cm x 1.0 cm x 1.1 cm. There is a left lobe nodule measuring 0.6 x 0.7 x 1. 0 cm of mixed echogenicity. The isthmus measured 0.4 mm. The echotexture of the thyroid is mixed. There are several small cysts in both lobes of the thyroid. US/US thyroid [id number] Impression: 1. Heterogeneous echotexture of both lobes of the liver. 2. Small nodules, one in each lobe of the thyroid.
== END 2024-04-11 12:35 | disposition home or self-care (01) ==
LOC: RAD 12:35
PROVIDERS: PCP Family Medicine; Visit Provider Family Medicine
DX: E04.1 Nontoxic single thyroid nodule (principal); E04.2 Nontoxic multinodular goiter; E11.9 Type 2 diabetes mellitus without complications; S83.282A Other tear of lateral meniscus, current injury, left knee, initial encounter; I10 Essential (primary) hypertension; W00.9XXA Unspecified fall due to ice and snow, initial encounter; E78.00 Pure hypercholesterolemia, unspecified; M17.12 Unilateral primary osteoarthritis, left knee; K21.9 Gastro-esophageal reflux disease without esophagitis; J30.1 Allergic rhinitis due to pollen; K44.9 Diaphragmatic hernia without obstruction or gangrene; J30.9 Allergic rhinitis, unspecified; M25.569 Pain in unspecified knee; Z79.84 Long term (current) use of oral hypoglycemic drugs; Z87.891 Personal history of nicotine dependence
CPT/HCPCS: 36415; 76536; 80053; 81003; 83036; 84439; 84443; 84481; 85025; 99214

== ENCOUNTER → 2024-04-13 10:00 | Outpatient (BNVA) | payer MEDICARE, MEDICAID, SELFPAY | PROVIDERS: PCP Family Medicine; Referring Provider Family Medicine; Visit Provider Surgery | DX: K21.9 Gastro-esophageal reflux disease without esophagitis (principal); Z12.11 Encounter for screening for malignant neoplasm of colon; K44.9 Diaphragmatic hernia without obstruction or gangrene; E11.42 Type 2 diabetes mellitus with diabetic polyneuropathy; M72.2 Plantar fascial fibromatosis; Z79.84 Long term (current) use of oral hypoglycemic drugs | CPT/HCPCS: 99213 ==

== ENCOUNTER → 2024-04-19 13:38 | Outpatient (BNVA) | payer MEDICARE, MEDICAID, SELFPAY | PROVIDERS: PCP Family Medicine; Visit Provider Dermatology | DX: D48.5 Neoplasm of uncertain behavior of skin (principal); L91.0 Hypertrophic scar; Z85.828 Personal history of other malignant neoplasm of skin; D23.71 Other benign neoplasm of skin of right lower limb, including hip | CPT/HCPCS: 99213 ==

== ENCOUNTER → 2024-04-22 10:42 | Outpatient (BNVA) | payer MEDICARE, MEDICAID, SELFPAY | PROVIDERS: PCP Family Medicine; Visit Provider Family Medicine | DX: Z01.818 Encounter for other preprocedural examination (principal) | CPT/HCPCS: 93005 ==

== ENCOUNTER 2024-05-03 06:33 | Day surgery (SDC) | payer MEDICARE, MEDICAID, SELFPAY ==
[2024-05-03] VITALS (9 sets, daily range): BP systolic 155–184; BP diastolic 80–98; PULSE 77–92; RESP 16–17; TEMP 36.2–36.3; O2SAT 91–100; BMI 26.4
--- NOTE | 2024-05-03 07:04 | W.PM.OPSUD ---
Surgery/Procedure H&P Update DATE OF PROCEDURE: May 03, 2024 DATE H&P PERFORMED: 04/11/24 H&P UPDATE INFORMATION: I have reviewed H&P completed within last 30 days, I have examined patient prior to procedure, No changes to prior documentation and H&P is in [facility] E[place] on date indicated PRIMARY INDICATION FOR PROCEDURE: MRI IMPRESSION: 1. Complex tears involving the anterior and posterior horns of the lateral meniscus. There is partial extrusion of the meniscus from the joint line. 2. Mild narrowing of the medial and lateral compartments. Bilateral chondromalacia but greatest involving the lateral compartment. 3. Suspect partially torn popliteus tendon. 4. No fracture. PLANNED PROCEDURE: Operation Date: 05/03/24 08:10 Proposed Procedures p Knee Arthroscopy Knee Arthroscopy w/ partial Lateral Menisectomy(Left) - Sammi Crowley MD
--- NOTE | 2024-05-03 07:09 | P.ANESASSM_ITS ---
Pre-Anesthetic Assessment Height/Weight: Height 1.68 m Weight 74.389 kg Temp Pulse Resp BP Pulse Ox O2 Del Method 97.4 F L 86 17 175/97 98 Room Air 05/03/24 06:52 05/03/24 06:52 05/03/24 06:52 05/03/24 06:52 05/03/24 06:52 05/03/24 06:53 Operation Date: 05/03/24 08:10 Proposed Procedures p Knee Arthroscopy Knee Arthroscopy w/ partial Lateral Menisectomy(Left) - Sammi Crowley MD Familial anesthetic complications: States she vomited up blood in recovery room after a previous surgery with Dr. Harley. Review of records available doesn't mention any incident occuring Was Beta Marcos taken within 24 hours: N/A Was Clonidine taken within 24 hours: N/A Last intake: Intake Last Liquid Date 05/02/24 Last Liquid Time 19:00 Last Solid Date 05/02/24 Last Solid Time 15:30 Social No alcohol and No tobacco former smoker Exam alert, oriented x 3, clear to auscultation bilaterally and regular rate & rhythm Airway Mallampati: Class II Dentition: chipped and other (very poor dentition) CV/HEM Hypertension GI Gastroesophageal Reflux Disease and Hiatal Hernia Hiatal hernia w/ acid reflux when laying flat hx Gi bleed Metabolic Diabetes Mellitus Anesthetic Plan ASA status: 3 Anesthesia: General Other: bicitra, reglan, pepcid pre-op Risk of > 500 ml blood loss (7ml/kg in children): No Medications/Allergies Home Medications Medication Instructions Recorded Confirmed Last Taken Type Sole Supports #1 ea 04/21/22 04/13/24 Unknown Rx triamcinolone acetonide 0.1 % 1 applic topical BID #80 grams 08/11/22 05/02/24 01/22/23 Rx topical ointment lancets #100 ea 02/16/23 04/13/24 Unknown Rx blood-glucose meter (Blood Glucose #1 ea 02/18/23 04/13/24 Unknown Rx Monitoring kit) Sole Supports #1 ea 05/13/23 04/13/24 Unknown Rx Fish Oil 1,000 mg as directed DAILY 09/22/23 04/22/24 04/27/24 History Zyrtec 10 mg capsule (cetirizine) 10 mg PO .at bedtime 90 days #90 03/14/24 05/02/24 Unknown Rx caps alcohol swabs 1 pad topical TID PRN as needed to 03/14/24 04/13/24 Unknown Rx check blood sugar 30 days #100 ea blood sugar diagnostic (Blood #50 ea 03/14/24 04/13/24 Unknown Rx Glucose Test strips) fluticasone propionate 50 1 spray intranasal Q12H #15.8 mL 03/14/24 05/02/24 Unknown Rx mcg/actuation nasal spray,suspension lisinopril 40 mg tablet 40 mg PO DAILY 90 days #90 tabs 03/14/24 05/02/24 05/02/24 Rx meloxicam 15 mg tablet 15 mg PO DAILY 90 days #90 tabs 03/14/24 05/02/24 04/27/24 Rx gabapentin 300 mg capsule 300 mg PO TID 30 days #90 caps 04/13/24 05/02/24 Unknown Rx atorvastatin 40 mg tablet 40 mg PO DAILY 05/02/24 05/02/24 05/02/24 History cimetidine 200 mg tablet 200 mg PO BID 05/02/24 05/02/24 05/02/24 History metformin 1,000 mg tablet 1,000 mg PO DAILY 05/02/24 05/02/24 04/30/24 History Allergies Allergy/AdvReac Type Severity Reaction Status Date / Time aspirin Allergy Unknown GI Bleed Verified 04/22/24 11:02 ibuprofen Allergy Unknown GI BLEED Verified 04/22/24 11:02 milk Allergy Unknown GI BLEED Verified 04/22/24 11:02 oxycodone [From Percocet] Allergy Unknown GI BLEED Verified 04/22/24 11:02 Penicillins Allergy Unknown GI BLEED Verified 04/22/24 11:02 [facility] Anesthesia Medical History History of nonmelanoma skin cancer Hypercholesteremia Allergic rhinitis Chronic cough Essential hypertension GERD (gastroesophageal reflux disease) Type 2 diabetes mellitus Surgical History Hx of basal cell carcinoma excision H/O section S/P appendectomy History of ankle surgery H/O hernia repair S/P cholecystectomy History of surgery of liver H/O: hysterectomy Social History Smoking and tobacco/nicotine status: former use of tobacco/nicotine Quit status (tobacco/nicotine): not considering quitting Second hand smoke exposure: No Alcohol intake: current Alcohol intake frequency: holidays/special occasions only Substance/Drug Use: never Current gender identity: Female Female Reproductive History Spontaneous abortions: No Data Anesthesia Cardiac Studies: No Data to Display
[2024-05-03 07:17] LABS: Glucose Point of Care 131 mg/dL (70-110)
[2024-05-03] MEDS: acetaminophen 1,000 MG/100 ML PIGGYBACK 400 MG IV (07:19)
[2024-05-03] MEDS: gabapentin 300 mg Capsule PO (07:20)
[2024-05-03] MEDS: metoclopramide 5 mg/mL SDV 2 mL 10 MG IVP (07:20)
[2024-05-03] MEDS: citric acid-sodium citrate 30 mL UDC PO (07:20)
[2024-05-03] MEDS: famotidine 20 mg/2 mL INJ IVP (07:20)
[2024-05-03] MEDS: sodium chloride 0.9% 1,000 ML 30 ML IV (07:31)
[2024-05-03] MEDS: ceFAZolin 2,000 mg SDV 2000 MG IVP (08:13)
[2024-05-03] MEDS: morphine 4 mg/mL SDV 1 mL 8 MG XX (09:06)
[2024-05-03] MEDS: ROPivacaine 0.5% SDV 30 mL 150 MG INJECTION (09:06)
--- NOTE | 2024-05-03 10:16 | P.OP_ITS ---
Operative Report Date of procedure: May 03, 2024 Pre-op diagnosis: Left knee lateral meniscal tear and degenerative osteoarthritis Post-op diagnosis: Left knee medial and lateral meniscal tears with degenerative osteoarthritis Post-op findings: See postop diagnosis Procedure done: Left arthroscopic knee surgery with partial medial and lateral meniscectomies, chondroplasty medial and lateral femoral condyles and tibial plateaus as well as undersurface of the patella Implants: None Specimens removed/disposition: Meniscal shavings, disposed of Pathology: None Surgeon: Sammi Crowley MD Track Repairer: [facility] operating room technicians Anesthesia: General (Intubated, ASA 3) Estimated blood loss (mL): 5 Tourniquet time (min): 53 (At 250 mmHg) IV fluids (mL): 900 Urine output (mL): 0 (No Frey) Complications: None Findings: See postop findings Condition: stable Disposition: PACU (Then return to same-day surgery for discharge to home) Brief History: This 63-year-old woman presents today for left arthroscopic knee surgery. She has MRI documented lateral meniscal tear as well as degenerative osteoarthritis. She has had this pain for years, but it has not worsened recently. After discussion with her, she wished to proceed with arthroscopic intervention. Risks and complications were discussed with her including aggravation of her degenerative osteoarthritis. Following this discussion, the decision was made to proceed with the arthroscopic surgery. Consents were signed and questions were answered. Procedure: Patient was brought to the operating theater and after undergoing general anesthesia, intubated, ASA 3, the patient's left lower extremity was prepped and draped in usual fashion utilizing DuraPrep. A tourniquet was placed high on the leg prior to prepping and draping. The tourniquet was elevated prior to commencement of the surgical procedure to 250 mmHg. Total tourniquet time was 53 minutes. Elevation of the tourniquet followed prepping and exsanguination. Prior to commencement of the surgical procedure, a surgical pause was performed. At the time of the surgical pause, we identified the site and side of surgery. We also confirmed the patient's identity and appropriate and timely administration of preoperative antibiotics. Preoperative surgical markings were also visualized at this time. Standard arthroscopic portals were utilized including superolateral, inferomedial, and inferolateral portals. The examination commenced in the suprapatellar pouch area where the patient was noted to have chondromalacia of the significant degree on the undersurface of the patella. The arthroscope was then passed in the medial compartment where there was noted to be significant synovitis causing difficulty visualizing the knee. Once we were able to visualize the medial compartment, there was noted to be inner rim tearing involving the anterior half of the medial meniscus. This was shaved along with the anterior portion of the knee in front of the anterior cruciate ligament to allow visualization. The arthroscope was then passed across the notch area where anterior cruciate ligament was visualized and found to be intact. There was noted to be what appeared to be a large bucket-handle tear of the lateral meniscus which was flipped into the intercondylar notch. The scope was passed into the lateral compartment with the knee in a [id number] position. Lateral meniscus was noted to have a large bucket-handle tear. There was also significant synovitis and fraying of the remaining meniscus. Combination of the intra-articular shaver and basket forceps was used to remove the bucket-handle tear. We attempted to push it back into the lateral compartment for removal, but this was not possible indicating the possibly this was a somewhat remote tear. We were able to remove this bucket-handle tear with a combination of the shaver and basket forceps. Following this, the remainder of the meniscus was shaved smooth and smooth further using an intra-articular heat wand. Once the lateral meniscus had been thus prepared it was palpated and found to be intact and not displaceable into the knee joint. Chondroplasty was then performed of the lateral tibial plateau and lateral femoral condyle. The scope was then returned to the medial compartment where chondroplasty was performed of the medial tibial plateau and medial femoral condyle. The meniscus had been previously debrided. The meniscus was palpated and found to be not displaceable into the knee joint. The arthroscope was then returned to the patellofemoral joint where a chondroplasty was performed of the undersurface of the patella. This chondroplasty involved use of the intra-articular shaver as well as the heat wand. Once the patella had been addressed, the scope was passed back through the knee compartments to evaluate for other abnormalities. Finding none, attention was directed to closure. The knee was copiously irrigated and suctioned dry. Following this, each portal was closed with a simple suture followed by Dermabond and OpSite. Additionally, the knee was injected with 20 mL of half percent ropivacaine and 8 mg of morphine. Additional 10 mL of ropivacaine was placed about the portals. Further dressing was placed consisting of soft roll and an Justin wrap. Patient was returned to Recovery Room in satisfactory condition where he will be discharged home to follow-up with me in the office as scheduled. There were no complications and no specimens. Related Problem List Diagnoses (1) Acute lateral meniscus tear of left knee: (2) Tear of medial meniscus of left knee: (3) Primary osteoarthritis of left knee:
--- NOTE | 2024-05-03 11:30 | ANE.PACU2 ---
Inpatient post-anesthesia follow up: Airway intact: Yes Vital signs: Temperature 97.1 F Pulse Rate 77 Respiratory Rate 16 Blood Pressure 175/96 Pulse Oximetry 91 Oxygen Delivery Me thod Room Air Oxygen Flow Rate 8 Fraction of Inspir ed Oxygen Hydration adequate: Yes Nausea and vomiting: No Pain level: 1 Mental status: Baseline
== END 2024-05-03 11:35 | disposition home or self-care (01) ==
PROVIDERS: PCP Family Medicine; Visit Provider Specialist
PROC: (CPT 29870; principal; 2024-05-03 08:00)
DX: M17.12 Unilateral primary osteoarthritis, left knee (principal); S83.242A Other tear of medial meniscus, current injury, left knee, initial encounter; S83.282A Other tear of lateral meniscus, current injury, left knee, initial encounter; X58.XXXA Exposure to other specified factors, initial encounter; I10 Essential (primary) hypertension; K21.9 Gastro-esophageal reflux disease without esophagitis; E11.9 Type 2 diabetes mellitus without complications; E78.00 Pure hypercholesterolemia, unspecified; Z87.891 Personal history of nicotine dependence
CPT/HCPCS: 29880; 36416; 82962; J0131; J0330; J0690; J1100; J2250; J2270; J2405; J2704; J2765; J2795; J3010; J3490; J7030

== ENCOUNTER → 2024-05-16 14:06 | Outpatient (BNVA) | payer MEDICARE, MEDICAID, SELFPAY | PROVIDERS: PCP Family Medicine; Visit Provider Nurse Practitioner | DX: Z98.890 Other specified postprocedural states (principal); S83.232A Complex tear of medial meniscus, current injury, left knee, initial encounter; S83.282A Other tear of lateral meniscus, current injury, left knee, initial encounter; X58.XXXA Exposure to other specified factors, initial encounter | CPT/HCPCS: 99024 ==

== ENCOUNTER 2024-05-17 05:56 | Day surgery (SDC) | payer MEDICARE, MEDICAID, SELFPAY ==
--- NOTE | 2024-05-17 05:57 | W.PM.OPSFHP ---
Same Day Surgery H&P Indication for Procedure/HPI DATE OF PROCEDURE: May 17, 2024 CHIEF COMPLAINT/INDICATIONFOR SURGICAL PROCEDURE: need for screening colonoscopy and GERD PREOP DIAGNOSIS: need for screening colonoscopy and GERD PLANNED PROCEDURE: Operation Date: 05/17/24 07:00 Proposed Procedures p EGD 05143, 84389, G0105, K21.9, Z12.11(Not Applicable) - Dharmesh Rock MD s Colonoscopy(Not Applicable) - Dharmesh Rock MD Medications/Allergies* Home Medications Medication Instructions Recorded Confirmed Type Fish Oil 1,000 mg PO DAILY 09/22/23 05/16/24 History atorvastatin 40 mg tablet 40 mg PO DAILY 05/02/24 05/16/24 History cimetidine 200 mg tablet 200 mg PO BID 05/02/24 05/16/24 History metformin 1,000 mg tablet 1,000 mg PO DAILY 05/02/24 05/16/24 History cetirizine 10 mg capsule (Zyrtec) 10 mg PO .at bedtime PRN Allergy 05/12/24 05/16/24 History Symptoms Allergies/Adverse Reactions Allergy/AdvReac Type Severity Reaction Status Date / Time aspirin Allergy Unknown GI Bleed Verified 05/16/24 14:13 ibuprofen Allergy Unknown GI BLEED Verified 05/16/24 14:13 milk Allergy Unknown GI BLEED Verified 05/16/24 14:13 oxycodone [From Percocet] Allergy Unknown GI BLEED Verified 05/16/24 14:13 Penicillins Allergy Unknown GI BLEED Verified 05/16/24 14:13 Pertinent History/Comorbid Conditions* Medical History (Updated 05/03/24 @ 10:18 by Sammi Crowley MD) History of nonmelanoma skin cancer Hypercholesteremia Allergic rhinitis Chronic cough Essential hypertension GERD (gastroesophageal reflux disease) Type 2 diabetes mellitus Surgical History (Updated 01/23/23 @ 08:52 by Domenico Harley DPM) Hx of basal cell carcinoma excision H/O section S/P appendectomy History of ankle surgery H/O hernia repair S/P cholecystectomy History of surgery of liver H/O: hysterectomy Social History Smoking and tobacco/nicotine status: former use of tobacco/nicotine Quit status (tobacco/nicotine): not considering quitting Second hand smoke exposure: No Alcohol intake: current Alcohol intake frequency: holidays/special occasions only Substance/Drug Use: never Current gender identity: Female Pertinent Exam Findings alert, oriented x 3, clear to auscultation bilaterally and regular rate & rhythm Recommendations Surgery/Procedure today Coding Level of Care Code Acute Code for Chg Elisabeth
[2024-05-17 06:09] VITALS: BP 168/95; PULSE 78; RESP 18; TEMP 36.3; O2SAT 100; BMI 26.4
[2024-05-17] MEDS: sodium chloride 0.9% 1,000 ML 30 ML IV (06:17)
[2024-05-17 06:24] LABS: Glucose Point of Care 143 mg/dL (70-110)
--- NOTE | 2024-05-17 06:53 | ANES.PREANE2 ---
Pre-Anesthetic Assessment Height/Weight: Height 1.68 m Weight 74.389 kg Temp Pulse Resp BP Pulse Ox O2 Del Method 97.4 F L 78 18 168/95 100 Room Air 05/17/24 06:09 05/17/24 06:09 05/17/24 06:09 05/17/24 06:09 05/17/24 06:09 05/17/24 06:09 Preop Diagnosis: need for screening colonoscopy and GERD Operation Date: 05/17/24 07:00 Proposed Procedures p EGD 17409, 99048, G0105, K21.9, Z12.11(Not Applicable) - Dharmesh Rock MD s Colonoscopy(Not Applicable) - Dharmesh Rock MD Familial anesthetic complications: none Was Beta Marcos taken within 24 hours: N/A Was Clonidine taken within 24 hours: N/A Last intake: Intake Last Liquid Date 05/16/24 Last Liquid Time 19:00 Last Solid Date 05/15/24 Last Solid Time 11:00 Airway Submandibular: within normal limits Cervical ROM: within normal limits Mallampati: Class II Comments: Comments: missing upper right tooth. Lower tooth loose per patient educated on risk of disloging tooth with bite block and scope. Pulmonary Asthma does not use inhaler makes me jittery CV/HEM Hypertension None reported Hepatic None reported GI Gastroesophageal Reflux Disease and Hiatal Hernia controlled on medication denies S/S today. Metabolic Diabetes Mellitus and Thyroid Disease (nodules) Musc/skel None reported Neuropsych None reported Anesthetic Plan ASA status: 2 Anesthesia: MAC Medications/Allergies Home Medications Medication Instructions Recorded Confirmed Last Taken Type Sole Supports #1 ea 04/21/22 05/16/24 05/15/24 Rx triamcinolone acetonide 0.1 % 1 applic topical BID #80 grams 08/11/22 05/16/24 05/15/24 Rx topical ointment lancets #100 ea 02/16/23 05/16/24 05/15/24 Rx blood-glucose meter (Blood Glucose #1 ea 02/18/23 05/16/24 05/15/24 Rx Monitoring kit) Sole Supports #1 ea 05/13/23 05/16/24 05/15/24 Rx Fish Oil 1,000 mg PO DAILY 09/22/23 05/16/24 05/15/24 History blood sugar diagnostic (Blood #50 ea 03/14/24 05/16/24 05/15/24 Rx Glucose Test strips) fluticasone propionate 50 1 spray intranasal Q12H #15.8 mL 03/14/24 05/16/24 05/15/24 Rx mcg/actuation nasal spray,suspension lisinopril 40 mg tablet 40 mg PO DAILY 90 days #90 tabs 03/14/24 05/16/24 05/15/24 Rx meloxicam 15 mg tablet 15 mg PO DAILY 90 days #90 tabs 03/14/24 05/16/24 05/15/24 Rx gabapentin 300 mg capsule 300 mg PO TID 30 days #90 caps 04/13/24 05/16/24 05/15/24 Rx atorvastatin 40 mg tablet 40 mg PO DAILY 05/02/24 05/16/24 05/15/24 History cimetidine 200 mg tablet 200 mg PO BID 05/02/24 05/16/24 05/15/24 History metformin 1,000 mg tablet 1,000 mg PO DAILY 05/02/24 05/16/24 05/15/24 History cetirizine 10 mg capsule (Zyrtec) 10 mg PO .at bedtime PRN Allergy 05/12/24 05/16/24 05/15/24 History Symptoms Allergies Allergy/AdvReac Type Severity Reaction Status Date / Time aspirin Allergy Unknown GI Bleed Verified 05/16/24 14:13 ibuprofen Allergy Unknown GI BLEED Verified 05/16/24 14:13 milk Allergy Unknown GI BLEED Verified 05/16/24 14:13 oxycodone [From Percocet] Allergy Unknown GI BLEED Verified 05/16/24 14:13 Penicillins Allergy Unknown GI BLEED Verified 05/16/24 14:13 Current Medications Generic Name Dose Route Start Last Admin Trade Name Freq PRN Reason Stop Dose Admin Sodium Chloride 1,000 mls @ 30 mls/hr 05/17/24 06:00 05/17/24 06:17 Sodium Chloride 0.9% IV 05/18/24 05:59 30 mls/hr .Q24H CAROL Administration PFSH Anesthesia Medical History History of nonmelanoma skin cancer Hypercholesteremia Allergic rhinitis Chronic cough Essential hypertension GERD (gastroesophageal reflux disease) Type 2 diabetes mellitus Surgical History Hx of basal cell carcinoma excision H/O section S/P appendectomy History of ankle surgery H/O hernia repair S/P cholecystectomy History of surgery of liver H/O: hysterectomy Social History Smoking and tobacco/nicotine status: former use of tobacco/nicotine Quit status (tobacco/nicotine): not considering quitting Second hand smoke exposure: No Alcohol intake: current Alcohol intake frequency: holidays/special occasions only Substance/Drug Use: never Current gender identity: Female Female Reproductive History Spontaneous abortions: No Data Anesthesia Cardiac Studies: No Data to Display
[2024-05-17 08:39] VITALS: BP 117/64; PULSE 81; RESP 16; TEMP 36.2; O2SAT 95
[2024-05-17 09:00] VITALS: BP 137/85; PULSE 80; RESP 17; O2SAT 100
--- NOTE | 2024-05-17 09:15 | ANE.PACU2 ---
Inpatient post-anesthesia follow up: Airway intact: Yes Vital signs: Temperature 97.2 F Pulse Rate 80 Respiratory Rate 17 Blood Pressure 137/85 Pulse Oximetry 100 Oxygen Delivery Me thod Room Air Oxygen Flow Rate 3 Fraction of Inspir ed Oxygen Hydration adequate: Yes Nausea and vomiting: No Pain level: 1 Mental status: Baseline
== END 2024-05-17 09:15 | disposition home or self-care (01) ==
PROVIDERS: PCP Family Medicine; Visit Provider Surgery
PROC: 0DJ08ZZ Inspection of Upper Intestinal Tract, Via Natural or Artificial Opening Endoscopic (ICD-10-PCS; CPT 43235; principal; 2024-05-17 07:00)
PROC: 0DJD8ZZ Inspection of Lower Intestinal Tract, Via Natural or Artificial Opening Endoscopic (ICD-10-PCS; CPT 45378; 2024-05-17 07:00)
DX: Z12.11 Encounter for screening for malignant neoplasm of colon (principal); K44.9 Diaphragmatic hernia without obstruction or gangrene; K29.80 Duodenitis without bleeding; K29.50 Unspecified chronic gastritis without bleeding; D12.4 Benign neoplasm of descending colon; D12.3 Benign neoplasm of transverse colon; K21.9 Gastro-esophageal reflux disease without esophagitis; Z79.84 Long term (current) use of oral hypoglycemic drugs; I10 Essential (primary) hypertension; E11.9 Type 2 diabetes mellitus without complications; Z87.891 Personal history of nicotine dependence
CPT/HCPCS: 36416; 43239; 45380; 45385; 82962; 88305; 88342; J0360; J2704; J3490; J7030

== ENCOUNTER → 2024-06-22 11:10 | Outpatient (BNVA) | payer MEDICARE, MEDICAID, SELFPAY | PROVIDERS: PCP Family Medicine; Visit Provider Surgery | DX: K44.9 Diaphragmatic hernia without obstruction or gangrene (principal); Z09 Encounter for follow-up examination after completed treatment for conditions other than malignant neoplasm | CPT/HCPCS: 99213 ==

== ENCOUNTER → 2024-07-05 09:01 | Outpatient (BNVA) | payer MEDICARE, MEDICAID, SELFPAY | PROVIDERS: PCP Family Medicine; Referring Provider Family Medicine; Visit Provider Internal Medicine | DX: E04.1 Nontoxic single thyroid nodule (principal); R13.10 Dysphagia, unspecified | CPT/HCPCS: 99203; 99204 ==

== ENCOUNTER 2024-07-06 07:43 | Outpatient (CLI) | payer MEDICARE, MEDICAID, SELFPAY ==
--- NOTE | 2024-07-06 08:30 | FL_ITS ---
WS: [id number] Exam: FL barium swallow [id number] Date/Time of Exam: 07/06/2024 8:12 AM Reason For Exam: Fluoroscopy time: 2min [id number] minutes # of spot films: 4 Oropharyngeal phase of swallowing was normal. There is mild extrinsic narrowing seen along the wind science and planning ior margin of the cervical esophagus secondary to anterior bone spurs of the C5, C6 and C7 vertebral bodies. There were no intrinsic esophageal masses. No strictures were identified. The esophagus is no t displaced. Normal motility was noted. Probable small hiatal hernia. No reflux was observed during f luoroscopy. FL/FL barium swallow [id number] IMPRESSION: 1. Mild extrinsic narrowing of the cervical esophagus along the posterior wall secondary to anterior bone spurring of the C5, C6 and C7 vertebra. 2. No intrinsic esophageal mass, stricture or motility disorder. 3. Probable very small hiatal hernia.
== END 2024-07-06 07:44 | disposition home or self-care (01) ==
LOC: RAD 07:44
PROVIDERS: PCP Family Medicine; Visit Provider Surgery
DX: K44.9 Diaphragmatic hernia without obstruction or gangrene (principal); M25.571 Pain in right ankle and joints of right foot; E11.42 Type 2 diabetes mellitus with diabetic polyneuropathy; M72.2 Plantar fascial fibromatosis; M19.171 Post-traumatic osteoarthritis, right ankle and foot; Z79.84 Long term (current) use of oral hypoglycemic drugs; R13.12 Dysphagia, oropharyngeal phase
CPT/HCPCS: 73610; 74220; 99213

== ENCOUNTER → 2024-08-09 12:45 | Outpatient (BNVA) | payer MEDICARE, MEDICAID, SELFPAY | PROVIDERS: PCP Family Medicine; Visit Provider Surgery | DX: Z09 Encounter for follow-up examination after completed treatment for conditions other than malignant neoplasm (principal) | CPT/HCPCS: 99213 ==

== ENCOUNTER → 2024-09-08 09:37 | Outpatient (BNVA) | payer MEDICARE, MEDICAID, SELFPAY | PROVIDERS: PCP Family Medicine; Visit Provider Family Medicine | DX: E11.9 Type 2 diabetes mellitus without complications (principal); E78.00 Pure hypercholesterolemia, unspecified | CPT/HCPCS: 80053; 80061; 83036; 83721; 85025 ==

== ENCOUNTER → 2024-12-06 08:03 | Outpatient (BNVA) | payer MEDICARE, MEDICAID, SELFPAY | PROVIDERS: PCP Family Medicine; Visit Provider Podiatrist Foot & Ankle Surgery | DX: E11.42 Type 2 diabetes mellitus with diabetic polyneuropathy (principal); M19.171 Post-traumatic osteoarthritis, right ankle and foot; Z79.84 Long term (current) use of oral hypoglycemic drugs | CPT/HCPCS: 99213 ==

== ENCOUNTER 2025-03-09 09:56 | Outpatient (CLI) | payer MEDICARE, MEDICAID, SELFPAY ==
--- NOTE | 2025-03-09 10:00 | MM_ITS ---
WS: [id number] SCREENING DIGITAL BREAST TOMOSYNTHESIS MAMMOGRAM WITH CAD HISTORY: SCREENING COMPARISON: 01/07/2024 Bilateral CC and MLO with tomosynthesis and synthetic mammography submitted. Computer aided detection analyzed. Breast composition: There are scattered areas of fibroglandular density. 6 x 3 x 5 mm slightly irregular mass LEFT breast near 4:00. This was present on the prior study and there was a marker indicating this was a mole. No marker present on today's study. This should be further evaluated to confirm whether this is a molar not. There has been no increase in size since the prior exam. RIGHT breast is negative. MM/MM scr BI tomosynthesis [id number] IMPRESSION: BI-RADS: 0 - Incomplete: Need additional imaging evaluation. FOLLOW UP: Need Additional Imaging LEFT breast: Spot compression views (CC and MLO). True ML. Ultrasound to follow if abnormality persists. If there is a mole over the lateral LEFT breast pleas e put a mole marker at this location.
== END 2025-03-09 09:57 | disposition home or self-care (01) ==
LOC: MOBLMAM 09:58
PROVIDERS: PCP Family Medicine; Visit Provider Family Medicine
DX: Z12.31 Encounter for screening mammogram for malignant neoplasm of breast (principal); R92.323 Mammographic fibroglandular density, bilateral breasts; N63.23 Unspecified lump in the left breast, lower outer quadrant; I10 Essential (primary) hypertension; E11.9 Type 2 diabetes mellitus without complications
CPT/HCPCS: 77063; 77067; 80048; 83036; 83735

== ENCOUNTER → 2025-04-11 09:24 | Outpatient (BNVA) | payer MEDICARE, MEDICAID, SELFPAY | PROVIDERS: PCP Family Medicine; Visit Provider Podiatrist Foot & Ankle Surgery | DX: E11.42 Type 2 diabetes mellitus with diabetic polyneuropathy (principal); L60.3 Nail dystrophy; Z79.84 Long term (current) use of oral hypoglycemic drugs | CPT/HCPCS: 11721 ==

== ENCOUNTER 2025-04-17 08:19 | Outpatient (CLI) | payer MEDICARE, MEDICAID, SELFPAY ==
--- NOTE | 2025-04-17 08:27 | MM_ITS ---
WS: [id number] ADDITIONAL VIEWS LEFT MAMMOGRAM WITH DIGITAL BREAST TOMOSYNTHESIS. LEFT breast ultrasound, limited HISTORY: ABNORMAL MAMMO COMPARISON: 03/09/2025, 01/07/2024 Spot compression views LEFT breast in CC, MLO projections and true ML submitted with digital breast tomosynthesis and SM. Breast composition: There are scattered areas of fibroglandular density. The small nodule measuring 6 x 5 x 5 mm persists in the posterior inferior LEFT breast near 5-6 o'clock. Ultrasound to follow. LEFT breast ultrasound, limited. No mass identified within the LEFT breast near 6:00 posteriorly against the chest wall. No shadowing or increased vascularity. MM/MM diag LT tomosynthesis [id number] IMPRESSION: BI-RADS: 3 - Probably Benign. FOLLOW UP: 6 Month Follow-up 1. Recommend diagnostic LEFT mammogram in 6 months to reevaluate the 6 x 5 x 5 mm mass. Mass is not identified by ultrasound.
== END 2025-04-17 08:20 | disposition home or self-care (01) ==
LOC: RAD 08:20
PROVIDERS: PCP Family Medicine; Visit Provider Family Medicine
DX: N63.23 Unspecified lump in the left breast, lower outer quadrant (principal)
CPT/HCPCS: 76642; 77061; G0279

== ENCOUNTER → 2025-06-08 10:02 | Outpatient (BNVA) | payer MEDICARE, MEDICAID, SELFPAY | PROVIDERS: PCP Family Medicine; Visit Provider Family Medicine | DX: E11.9 Type 2 diabetes mellitus without complications (principal) | CPT/HCPCS: 80048; 83036 ==

== ENCOUNTER 2025-07-11 11:53 | Outpatient (CLI) | payer MEDICARE, MEDICAID, SELFPAY ==
--- NOTE | 2025-07-11 13:00 | XR_ITS ---
WS: [id number] SCREENING DEXA SCAN KonTEM CLINICAL INFORMATION: Z78.0 - Asymptomatic menopausal state COMPARISON: None. FINDINGS: The L1-L4 bone mineral density measures 1.095 g/cm2. This corresponds to a T score score of -0.7 and Z score of 0.6. Left femoral neck bone mineral density measures 0.885 g/cm2. This corresponds to a T score of -1.0 and Z score of 0.1. Right femoral neck bone mineral density measures 0.971 g/cm2. This corresponds to a T score -0.3of and Z score of 0.8. Mean femoral neck bone mineral density measures 0.928 g/cm2. This corresponds to a T score of -0.6 and Z score of 0.4. XR/XR DEXA axial skeleton* [id number] IMPRESSION: Normal bone mineralization lumbar spine. Osteopenia LEFT femur Patient's FRAX calculated 10 year probability for major osteoporotic fracture i s 8.6% and osteoporotic hip fracture is 0.8%.
== END 2025-07-11 11:54 | disposition home or self-care (01) ==
LOC: RAD 11:55
PROVIDERS: PCP Family Medicine; Visit Provider Family Medicine
DX: Z13.820 Encounter for screening for osteoporosis (principal); Z78.0 Asymptomatic menopausal state; M85.852 Other specified disorders of bone density and structure, left thigh
CPT/HCPCS: 11721; 77080